=== PATIENT | male | born 1985 | race Hispanic/Latino ===

== ENCOUNTER 2017-02-27 16:18 | Emergency (ER) | payer SELFPAY ==
[~2017-02-27] VITALS: Ht 162.6 cm; Wt 89.0 kg
[~2017-02-27 16:18] MED LIST: AMOX500C5 PO; CARB15DR12 OT
--- OUTSIDE RECORDS SUMMARY | 2017-02-27 16:23 | XMS REPORT | Continuity of Care Document ---
Author Author [facility] Address Unknown Phone Unavailable Allergies Active Description Code Type Severity Reaction Onset Reported/Identified Relationship to Patient Clinical Status Yes No Known Drug Allergies [id number] Drug Allergy Unknown N/ A 02/08/2015 Medications Problems Date Dx Coded Attending Type Code Diagnosis Diagnosed By 02/08/2015 EMMANUELLE WOOD DO Ot 382.00 AC SUPP OTITIS MEDIA NOS 02/08/2015 EMMANUELLE WOOD DO Ot 388.70 OTALGIA NOS Procedures Results Encounters ACCT No. Visit Date/Time Discharge Status Pt. Type Provider Facility Loc./Unit Complaint [id number] 02/08/2015 16:15:00 2014 16:54:00 DIS Emergency WOODEMMANUELLE Fierro DO [facility] ED [id number] 02/27/2017 16:18:00 PEN Preadmit [facility] ED
--- OUTSIDE RECORDS SUMMARY | 2017-02-27 16:26 | XMS REPORT | Continuity of Care Document ---
Author Author [facility] Address Unknown Phone Unavailable Allergies Active Description Code Type Severity Reaction Onset Reported/Identified Relationship to Patient Clinical Status Yes No Known Drug Allergies [id number] Drug Allergy Unknown N/ A 02/08/2015 Medications Problems Date Dx Coded Attending Type Code Diagnosis Diagnosed By 02/08/2015 EMMANUELLE WOOD DO Ot 382.00 AC SUPP OTITIS MEDIA NOS 02/08/2015 EMMANUELLE WOOD DO Ot 388.70 OTALGIA NOS Procedures Results Encounters ACCT No. Visit Date/Time Discharge Status Pt. Type Provider Facility Loc./Unit Complaint [id number] 02/08/2015 16:15:00 2014 16:54:00 DIS Emergency [place] EMMANUELLE TSE [facility] ED [id number] 02/27/2017 16:23:00 ACT Emergency JONO ROSSI, LISA Cooley [facility] ED
[2017-02-27 17:12] VITALS: BP 137/84
== END 2017-02-27 17:05 | disposition home or self-care (01) ==
LOC: ED 16:23
DX: H10.89 Other conjunctivitis (principal)
CPT/HCPCS: 99282